=== PATIENT | female | born 1970 | race African-American/Black ===

== ENCOUNTER 2016-04-08 09:55 | Outpatient (CLI) | payer BC ==
--- NOTE | 2016-04-09 08:25 | Mammography Report ---
BILATERAL DIGITAL SCREENING MAMMOGRAM with CAD: 04/08/16 09:55:00 CLINICAL: Routine screening. COMPARISON:07/20/13 FINDINGS: The breasts are almost entirely fatty. A right upper outer focal asymmetry is new compared to prior exams and requires additional imaging.No architectural distortion or suspicious calcifications.The left breast is negative. IMPRESSION: Right focal asymmetry requiring further workup. BI-RADS CATEGORY: 0 -- Additional Imaging Evaluation Required RECOMMENDATION: Recall for right mediolateral , spot compression CC and MLO views and right breast ultrasound if needed. ACR BI-RADS MAMMOGRAPHIC CODES: 0 = Needs additional imaging evaluation; 1 = Negative; 2 = Benign; 3 = Probably benign; 4 = Suspicious; 5 = Malignant; 6 = Known biopsy-proven malignancy COMMENT: 1. Dense breast tissue, i.e., adenosis, fibrocystic changes, etc., may obscure an underlying neoplasm. 2. Approximately 10% of cancers are not detected with mammography. 3. A negative mammography report should not delay biopsy if a clinically suspicious mass is present. COMMENT: Patient follow-up letters are generated via our [employer] application.
== END 2016-04-08 09:56 | disposition home or self-care (01) ==
LOC: SPVWC 09:55
PROVIDERS: ATTEND Family Medicine
DX: Z12.31 Encounter for screening mammogram for malignant neoplasm of breast (principal)
CPT/HCPCS: 77067; G0202

== ENCOUNTER 2016-05-06 15:05 | Outpatient (CLI) | payer BC ==
--- NOTE | 2016-05-06 16:14 | Mammography Report ---
RIGHT DIGITAL DIAGNOSTIC MAMMOGRAM and RIGHT BREAST ULTRASOUND: 05/06/16 15:05:00 CLINICAL: Recalled for asymmetry. COMPARISON:04/08/16 screening FINDINGS: ML and spot compression MLO and CC views were performed. An irregular 7 mm density persists on all views. Targeted ultrasound of the upper-outer right breast was performed and demonstrated a solid hypoechoic mass versus lymph node at 10 o'clock 9 cm from the nipple. It measures 5 x 5 x 4 mm and correlates with the mammographic density. It is a lymph node, it has minimal central fat and minimal blood flow. IMPRESSION: A 5 mm mass versus lymph node at 10 o'clock. BI-RADS CATEGORY: 4--Suspicious RECOMMENDATION: Ultrasound guided needle core biopsy of the right breast. I discussed the findings and the recommendation for ultrasound guided needle core biopsy with the patient at the time of the examination. ACR BI-RADS MAMMOGRAPHIC CODES: 0 = Needs additional imaging evaluation; 1 = Negative; 2 = Benign; 3 = Probably benign; 4 = Suspicious; 5 = Malignant; 6 = Known biopsy-proven malignancy COMMENT: 1. Dense breast tissue, i.e., adenosis, fibrocystic changes, etc., may obscure an underlying neoplasm. 2. Approximately 10% of cancers are not detected with mammography. 3. A negative mammography report should not delay biopsy if a clinically suspicious mass is present. COMMENT: Patient follow-up letters are generated via our [employer] application.
== END 2016-05-06 15:06 | disposition home or self-care (01) ==
LOC: SPVWC 15:05
PROVIDERS: ATTEND Family Medicine
DX: R92.8 Other abnormal and inconclusive findings on diagnostic imaging of breast (principal)
CPT/HCPCS: 76642; G0206

== ENCOUNTER 2016-05-20 10:17 | Outpatient (CLI) | payer BC ==
--- NOTE | 2016-05-20 11:37 | Mammography Report ---
RIGHT DIGITAL DIAGNOSTIC MAMMOGRAM: 05/20/16 10:17:00 CLINICAL: For clip placement immediately status post ultrasound biopsy. COMPARISON:05/06/16 FINDINGS: A biopsy clip is now identified in the upper outer quadrant at the site of the previously described lesion. IMPRESSION: Concordant clip placement status post ultrasound biopsy. BI-RADS CATEGORY: 4--Suspicious Pathology pending.
--- NOTE | 2016-05-20 11:40 | Ultrasound Report ---
VACUUM ASSISTED ULTRASOUND GUIDED NEEDLE CORE BIOPSY WITH CLIP PLACEMENT RIGHT BREAST: 05/20/16 10:17:00 CLINICAL: A 5 mm mass at 10 o'clock centimeters from the nipple. COMPARISON :05/06/16 FINDINGS: The procedure was explained to the patient and informed consent was obtained. Ultrasound demonstrated the previously described mass. The skin was prepped with Betadine and anesthetized with 1% lidocaine. Vacuum-assisted needle core biopsy was performed through a small dermatotomy using ultrasound guidance, 2% lidocaine with epinephrine for deep anesthesia and a 13-gauge Elite biopsy probe. Imaging demonstrated satisfactory sampling. Multiple cores were obtained and placed in formalin. A hydro-carlitos clip was deployed within the lesion. Hemostasis was achieved with minimal pressure and a sterile dressing was applied. The patient tolerated the procedure well and there were no apparent complications. A two view mammogram demonstrated concordant clip placement. The patient left the department in good condition with instructions for wound care and follow up. IMPRESSION: Uncomplicated vacuum-assisted ultrasound core biopsy with clip placement right breast.
== END 2016-05-20 10:18 | disposition home or self-care (01) ==
LOC: SPVWC 10:17
PROVIDERS: ATTEND Family Medicine
DX: N63 Unspecified lump in breast (principal)
CPT/HCPCS: 19083; 88305; A4648; G0206

== ENCOUNTER 2018-09-08 11:40 | Outpatient (CLI) | payer BC ==
--- NOTE | 2018-09-08 13:32 | Mammography Report ---
BILATERAL DIGITAL SCREENING MAMMOGRAM WITH CAD INDICATION: Routine screening mammography. TECHNIQUE: Digital bilateral 2D mammography was obtained in the craniocaudal and mediolateral obliq ue projections. This examination was interpreted with the benefit of Computer-Aided Detection analysi s. COMPARISON: 05/20/2016 right mammogram FINDINGS: Breast Density: The breasts are almost entirely fatty. No mass, architectural distortion or suspicious calcifications. A right upper outer posterior biopsy clip. IMPRESSION:No mammographic evidence of malignancy. BI-RADS Category 2: Benign. No mammographic evidence of malignancy. Recommend routine screening ma mmography in one year. A "normal" or negative report should not discourage follow up or biopsy of a clinically significant f inding. A written summary of these findings will be mailed to the patient. The patient will be entered into a mammography reporting system which will generate a reminder letter for the patient's next appointmen t at the appropriate interval. The [employer] recommends yearly mammograms starting at age 40 and continuing as l scotty as a woman is in good health. Breast MRI is recommended for women with an approximate 20-25% or greater lifetime risk of breast cancer, including women with a strong family history of breast or ova jasmine cancer or who have been treated for Hodgkin's disease. Signer Name: Harlan Haji MD Signed: 09/08/2018 1:28 PM Workstation Name: [id number]
== END 2018-09-08 11:41 | disposition home or self-care (01) ==
LOC: SPVWC 11:40
PROVIDERS: ATTEND Family Medicine
DX: Z12.31 Encounter for screening mammogram for malignant neoplasm of breast (principal)
CPT/HCPCS: 77067

== ENCOUNTER 2019-12-01 15:06 | Outpatient (CLI) | payer BC ==
--- NOTE | 2019-12-01 18:34 | Mammography Report ---
DIGITAL SCREENING MAMMOGRAM WITH CAD, 12/01/2019 INDICATION: Routine screening mammography. TECHNIQUE: Digital bilateral 2D mammography was obtained in the craniocaudal and mediolateral obliq ue projections. This examination was interpreted with the benefit of Computer-Aided Detection analysi s. COMPARISON: 09/08/2018, 04/08/2016 FINDINGS: Breast Density: The breasts are almost entirely fatty. There is no evidence of dominant mass, suspicious calcifications or architectural distortion in eithe r breast. Right biopsy clip is again noted. No interval change. IMPRESSION: No evidence of malignancy. Follow up recommendation: Routine yearly BI-RADS Category 2: Benign. A "normal" or negative report should not discourage follow up or biopsy of a clinically significant f inding. A written summary of these findings will be mailed to the patient. The patient will be entered into a mammography reporting system which will generate a reminder letter for the patient's next appointmen t at the appropriate interval. The [employer] recommends yearly mammograms starting at age 40 and continuing as l scotty as a woman is in good health. Breast MRI is recommended for women with an approximate 20-25% or greater lifetime risk of breast cancer, including women with a strong family history of breast or ova jasmine cancer or who have been treated for Hodgkin's disease. Signer Name: Yeni Garcia MD Signed: 12/01/2019 6:30 PM Workstation Name: [id number]
== END 2019-12-01 15:07 | disposition home or self-care (01) ==
LOC: SPVWC 15:06
PROVIDERS: ATTEND Family Medicine
DX: Z12.31 Encounter for screening mammogram for malignant neoplasm of breast (principal)
CPT/HCPCS: 77067